=== PATIENT | female | born 1930 | race Caucasian/White ===

== ENCOUNTER 2017-12-05 14:58 | Emergency (ER) | payer MEDICARE, OTHER ==
[2017-12-05 15:22] LABS: BASOPHILS % (AUTO) 2 % (0-3); EOSINOPHILS % (AUTO) 1 % (0-9); HEMATOCRIT 36 % (35-47); HEMOGLOBIN 11.5 gm/dl (12.0-15.5); LYMPHOCYTES % (AUTO) 38.9 % (10-50); MEAN CORPUSCULAR HEMOGLOBIN 26.7 pg (27.0-32.0); MEAN CORPUSCULAR VOLUME 83 fL (81-99); MONOCYTES % (AUTO) 11.3 % (0-12)
[2017-12-05 15:25] LABS: INR 0.99 (0.86-1.12)
[2017-12-05 15:29] LABS: ALBUMIN 4.1 gm/dl (3.4-5.0); BILIRUBIN,TOTAL 0.5 mg/dl (0.2-1.0); CALCIUM 9.3 mg/dl (8.5-10.1); CARBON DIOXIDE 28.8 mEq/L (21-32); CREATININE 1.03 mg/dl (0.60-1.00); TOTAL PROTEIN 7.5 gm/dl (6.4-8.2)
[2017-12-05] MEDS ORDERED: MORPHINE SULFATE 10 MG/ML SOL IV ONE ×2 (15:33→17:31)
[2017-12-05] MEDS ORDERED: MORPHINE SULFATE 10 MG/ML SOL ONE ×2 (15:35→17:32)
[2017-12-05 15:37] LABS: POTASSIUM 2.9 mMol/L (3.5-5.1)
[2017-12-05] MEDS ORDERED: HYDRALAZINE HYDROCHLORIDE 20 MG/ML SOL ONE (15:48)
[2017-12-05] MEDS ORDERED: HYDRALAZINE HYDROCHLORIDE 20 MG/ML SOL IV ONE ×2 (15:49→16:08)
[2017-12-05] MEDS ORDERED: POTASSIUM CHLORIDE 2 MEQ/ML SOL IV SCH (16:15)
[2017-12-05] MEDS ORDERED: POTASSIUM CHLORIDE 2 MEQ/ML SOL IV ONE (16:17)
[2017-12-05] MEDS ORDERED: TDAP VACCINE 0.5 ML SUS IM ONE ×2 (16:44→16:45)
[2017-12-05 17:12] VITALS: RESP 19
[2017-12-05 18:23] VITALS: BP 166/64; PULSE 85; TEMP 98.4; O2SAT 98
== END 2017-12-05 17:48 | disposition short-term general hospital (02) | DRG 87 ==
LOC: ED 14:58
DX: S06.360A Traumatic hemorrhage of cerebrum, unspecified, without loss of consciousness, initial encounter (principal); S01.511A Laceration without foreign body of lip, initial encounter; S00.83XA Contusion of other part of head, initial encounter; S02.5XXA Fracture of tooth (traumatic), initial encounter for closed fracture
CPT/HCPCS: 36415; 70450; 71250; 72125; 74176; 80053; 85025; 85610; 90471; 90715; 96365; 96374; 96375; 99285; G0390; J0360; J2270; J3480